=== PATIENT | male | born 1990 | race African-American/Black ===

== ENCOUNTER 2016-02-15 14:36 | Emergency (ER) | payer OTHER ==
[~2016-02-15] VITALS: Ht 193 cm; Wt 104.3 kg
--- NOTE | 2016-02-15 15:35 | ED GI/GU/ABDOMINAL COMPLAINT ---
History of Present Illness General Chief Complaint: Abdominal Pain/Flank Pain Stated Complaint: LFT LOWER ABD PAIN Source: patient Exam Limitations: no limitations Vital Signs & Intake/Output Vital Signs & Intake/Output Vital Signs Date Time Temp Pulse Resp B/P Pulse O2 O2 Flow FiO2 Ox Delivery Rate 02/14 1842 98.2 78 17 134/80 98 Room Air Room Air 02/14 1734 96.7 66 16 144/69 98 Room Air 02/14 1600 Room Air 02/14 1454 98.3 69 20 154/88 97 Room Air ED Intake and Output 02/15 0000 02/14 1200 Intake Total Output Total Balance Patient 230 lb Weight Allergies Coded Allergies: NO KNOWN ALLERGIES (NO) (02/15/16) Reconcile Medications Hydrocodone/Acetaminophen ([place] 5-325 Tablet) 5 MG-325 MG TABLET 1 TAB PO TIDPRN PRN PAIN Naproxen (Naprosyn) 500 MG TABLET 1 TAB PO BID PRN PAIN Tamsulosin HCl (Flomax) 0.4 MG CAP.ER.24H 1 CAP PO DAILY STONES Triage Note: TRIAGE: PT TO ER C/C PAIN TO LLQ ABD WITH RADIATION INTO L TESTICLE X 2 DAYS, CONSTANT. STATES HAD RT SIDED ABD PAIN WITH RADIATION INTO R TESTICLE 2 WEEKS AGO LASTING APPROX 3 DAYS. DID NOT SEE MD AT THAT TIME, RESOLVED WITHOUT INTERVENTION. Triage Nurses Notes Reviewed? yes HPI: 25-year-old male with 2-3 weeks of intermittent left-sided testicular pain that radiates to the left lower quadrant and also mild associated left lower back pain. Pain at times can be severe and at times he has no pain. Last episode of pain was approximately 3 days ago, they started atraumatically, suddenly, worse with palpation of the testicle worse with walking. No urinary symptoms no penile discharge, no swelling, no skin surface changes. No abdominal surgery no history of kidney stones, no hematuria. (CESAR LINDSEY,RAVI) Past History Travel History Traveled to [place] past 21 day No Medical History Any Pertinent Medical History? none Neurological: NONE EENT: NONE Cardiovascular: NONE Respiratory: NONE Gastrointestinal: NONE Hepatic: NONE Renal: NONE Musculoskeletal: NONE Psychiatric: NONE Endocrine: NONE Blood Disorders: NONE Cancer(s): NONE BILLET SAWYER/Reproductive: NONE Surgical History Surgical History: none Psychosocial History What is your primary language Serbian Tobacco Use: Current Not Daily ETOH Use: occasional use Illicit Drug Use: marijuana Family History Hx Contributory? No (RAVI FULTON) Review of Systems Review of Systems Constitutional: Reports: see HPI. EENTM: Reports: no symptoms. Respiratory: Reports: no symptoms. Cardiovascular: Reports: no symptoms. GI: Reports: see HPI. Genitourinary: Reports: see HPI. Musculoskeletal: Reports: no symptoms. Skin: Reports: no symptoms. Neurological/Psychological: Reports: no symptoms. Hematologic/Endocrine: Reports: no symptoms. Immunologic/Allergic: Reports: no symptoms. All Other Systems: Reviewed and Negative (RAVI FULTON) Physical Exam Physical Exam General Appearance: well developed/nourished Gastrointestinal: normal bowel sounds, soft, minimal tenderness in his lower left pelvic area, no hernias no masses, no CVA tenderness Comments: Well-developed well-nourished no apparent distress. HEENT: Atraumatic, extraocular motion intact Neck: Supple, no lymphadenopathy Back: Nontender Respiratory: No respiratory distress clear to auscultation bilateral. Heart: Regular rate and rhythm no murmur Female : External genitalia is normal, right testicle is benign, left tenderness, no swelling no mass, exquisitely tender throughout the testicle especially over the epididymal region Extremities: No edema, full range of motion Neuro: Alert and oriented x3 Psych: Mood affect normal, normal memory normal judgment. Skin: Warm and dry, no rash on exposed skin Core Measures ACS in differential dx? No Severe Sepsis Present: No Septic Shock Present: No (RAVI FULTON) Progress Differential Diagnosis: AAA, AMI, appendicitis, biliary colic, bowel obstruction , colon cancer, cholecystitis, diverticulitis, epididymitis, esophageal varices, gastritis, hepatitis, hernia, hemorrhoids, ischemic bowel, inflamm bowel dis, Charlotte-Shruthi tear, orchitis, pancreatitis, prostatitis, peptic ulcer, PUD/GERD, perforated viscous, pyelonephritis, SBO, STD, testicular torsion, ureterolithiasis, urinary retention, urethritis, UTI/pyelo Plan of Care: Laboratory Tests 02/15/16 1458: Urine Color Cancelled, Urine Clarity Cancelled, Urine pH Cancelled, Ur Specific [place] Cancelled, Urine Protein Cancelled, Urine Ketones Cancelled, Urine Nitrite Cancelled, Urine Bilirubin Cancelled, Urine Urobilinogen Cancelled, Ur Leukocyte Esterase Cancelled, Ur Microscopic Cancelled, Urine Hemoglobin Cancelled, Urine Glucose Cancelled Microbiology 02/14 1458 URINE ROUT: Urine Culture - CAN Cancelled: SPECIMEN NEVER RECEIVED. PATIENT DEPARTED [facility] Diagnostic Imaging: Viewed by Me: CT Scan, Ultrasound. Discussed w/RAD: CT Scan, Ultrasound. Radiology Impression: PATIENT: RAMON HIGHTOWER PRESENT AGE: 25 PATIENT ACCOUNT NO: [id number] : 89 LOCATION: [facility] ORDERING PHYSICIAN: RAVI LINDSEY SERVICE DATE: 02/15/16 EXAM TYPE : US - US-TESTICULAR EXAMINATION: US TESTICULAR CLINICAL INFORMATION: Left-sided testicular pain. COMPARISON: None. TECHNIQUE: Real-time imaging was performed using high-frequency linear transducer. FINDINGS: The right testicle is normal in size and appearance measuring 4.7 x 2.4 x 3.8 cm with a volume of 30 mL. Echotexture is normal. There is no focal lesion. There is normal intratesticular color and duplex Doppler blood flow with normal venous and arterial waveforms. The right epididymis is normal. There is no hydrocele or varicocele. The left testicle is normal in size and appearance with normal echotexture. There is no focal lesion. Size measures 5.0 x 2.3 x 3.3 cm with a volume of 27 mL. Normal color and spectral Doppler blood flow is seen with no evidence for testicular torsion. A small fluid collection in the tail of the epididymis measures 0.8 cm maximally and could represent epididymal cyst or small hydrocele. The epididymis is otherwise unremarkable. There is no varicocele. IMPRESSION: Unremarkable examination. DICTATED BY: YUE SCALES MD DATE/TIME DICTATED:02/15/161599 CABIN SUPERVISOR:CORONEL , ======== PATIENT: RAMON HIGHTOWER PRESENT AGE: 25 PATIENT ACCOUNT NO: [id number] : 89 LOCATION: [facility] ORDERING PHYSICIAN: RAVI LINDSEY SERVICE DATE: 02/15/16 EXAM TYPE: CAT - CT ABD & PELVIS W/O IV CONTRAS EXAMINATION: CT ABDOMEN AND PELVIS WITHOUT CONTRAST CLINICAL INFORMATION: Left-sided abdominal and pelvic pain. Left testicular pain. COMPARISON: Scrotal ultrasound of same day. TECHNIQUE: Multidetector volumetric imaging was performed from the superior aspect of the liver through the pubic symphysis. Sagittal and coronal reformatted images were obtained on the technologist's workstation. DLP: 296 mGy-cm. FINDINGS: LUNG BASES: The visualized lung bases are unremarkable. LIVER, GALLBLADDER, AND BILIARY TREE: The liver is normal in size, shape, and attenuation. No focal hepatic lesion or biliary ductal dilatation is present. The gallbladder is unremarkable with no evidence of radiopaque gallstones, gallbladder wall thickening, or obvious pericholecystic inflammatory changes. PANCREAS: Unremarkable. SPLEEN: Unremarkable. ADRENAL GLANDS: Unremarkable. KIDNEYS AND URETERS: The kidneys are normal in size, shape, and attenuation. No hydronephrosis, hydroureter, or calculi seen. No perinephric stranding. 2 tiny calcifications are present in the region of the left ureterovesical junction. Each measures 0.2 cm in diameter. These could represent distal ureteric calculi is difficult to confirm as there is no hydroureter and lack of intra-abdominal fat makes localization difficult. BLADDER: Unremarkable. GASTROINTESTINAL TRACT: The stomach and duodenum are unremarkable. No abnormality of the small bowel or mesentery is demonstrated. The colon is unremarkable. The appendix is not identified with certainty. There is no evidence for acute appendicitis. ABDOMINAL WALL: No significant hernia is appreciated. LYMPH NODES: Normal. VASCULAR: Limited assessment without contrast. No abnormality is seen. PELVIC VISCERA: Unremarkable. OSSEOUS STRUCTURES: Unremarkable. IMPRESSION: 1. 2 small calcifications in the left hemipelvis in the region of the ureterovesical junction could represent nonobstructing distal ureteric calculi. This is difficult to confirm as there is no hydroureter and lack of intra-abdominal fat makes localization difficult. No other calculi are demonstrated. There is no hydronephrosis. 2. Otherwise normal examination. DICTATED BY: YUE SCALES MD DATE/TIME DICTATED:02/15/161731 CABIN SUPERVISOR:JAYLEN DATE/TIME TRANSCRIBED:02/15/161731 Initial ED EKG: none Comments: Treated with 30 mg of Toradol IM, reevaluation is feeling better. Scrotal ultrasound is unremarkable, we will obtain CT scan of abdomen and pelvis without contrast to evaluate for kidney stone , hernia, or other intra-abdominal pathology CT scan shows 2 possible kidney stones at the left UVJ, this could be the cause of patient's symptoms it is in the correct area any since having back pain and pain radiating into the testicle, recommend following up with urology, he is pain-free on reevaluation again, we'll place him on a short course of Flomax and pain medication as needed he will return with any worsening symptoms. (RAVI FULTON) Departure Departure Disposition: HOME OR SELF CARE Condition: Stable Clinical Impression Primary Impression: Ureterolithiasis Referrals: LALIT SILVESTRE MD PATIENT HAS NO PRIMARY CARE DR (PCP/Family) Additional Instructions: FOLLOW UP WITH UROLOGIST. STRAIN YOUR URINE AND BRING THE STONE TO THE UROLOGIST FOR ANALYSIS IF POSSIBLE. TAKE MEDICATIONS TO HELP PASS THE KIDNEY STONES RETURN WITH SEVERE PAIN, VOMITING OR FEVER. Departure Forms: Customer Survey General Discharge Information Prescriptions: Current Visit Scripts Hydrocodone/Acetaminophen ([place] 5-325 Tablet) 1 TAB PO TIDPRN PRN PAIN #12 TAB Naproxen (Naprosyn) 1 TAB PO BID PRN PAIN #20 TAB Tamsulosin HCl (Flomax) 1 CAP PO DAILY #5 CAP (RAVI FULTON) PA/SURVEY COORDINATOR Co-Sign Statement Statement: ED Attending supervision documentation- [] I saw and evaluated the patient. I have also reviewed all the pertinent lab results and diagnostic results. I agree with the findings and the plan of care as documented in the PA's/SURVEY COORDINATOR's documentation. [x] I have reviewed the ED Record and agree with the PA's/SURVEY COORDINATOR's documentation. [] Additions or exceptions (if any) to the PAs/SURVEY COORDINATOR's note and plan are summarized below: [] (JULIA TRINIDAD,JOHNNIE)
--- NOTE | 2016-02-15 16:09 | ULTRASOUND REPORT ---
EXAMINATION: US TESTICULAR CLINICAL INFORMATION: Left-sided testicular pain. COMPARISON: None. TECHNIQUE: Real-time imaging was performed using high-frequency linear transducer. FINDINGS: The right testicle is normal in size and appearance measuring 4.7 x 2.4 x 3.8 cm with a volume of 30 mL. Echotexture is normal. There is no focal lesion. There is normal intratesticular color and duplex Doppler blood flow with normal venous and arterial waveforms. The right epididymis is normal. There is no hydrocele or varicocele. The left testicle is normal in size and appearance with normal echotexture. There is no focal lesion. Size measures 5.0 x 2.3 x 3.3 cm with a volume of 27 mL. Normal color and spectral Doppler blood flow is seen with no evidence for testicular torsion. A small fluid collection in the tail of the epididymis measures 0.8 cm maximally and could represent epididymal cyst or small hydrocele. The epididymis is otherwise unremarkable. There is no varicocele. IMPRESSION: Unremarkable examination.
--- NOTE | 2016-02-15 17:48 | CT SCAN REPORT ---
EXAMINATION: CT ABDOMEN AND PELVIS WITHOUT CONTRAST CLINICAL INFORMATION: Left-sided abdominal and pelvic pain. Left testicular pain. COMPARISON: Scrotal ultrasound of same day. TECHNIQUE: Multidetector volumetric imaging was performed from the superior aspect of the liver through the pubic symphysis. Sagittal and coronal reformatted images were obtained on the technologist's workstation. DLP: 296 mGy-cm. FINDINGS: LUNG BASES: The visualized lung bases are unremarkable. LIVER, GALLBLADDER, AND BILIARY TREE: The liver is normal in size, shape, and attenuation. No focal hepatic lesion or biliary ductal dilatation is present. The gallbladder is unremarkable with no evidence of radiopaque gallstones, gallbladder wall thickening, or obvious pericholecystic inflammatory changes. PANCREAS: Unremarkable. SPLEEN: Unremarkable. ADRENAL GLANDS: Unremarkable. KIDNEYS AND URETERS: The kidneys are normal in size, shape, and attenuation. No hydronephrosis, hydroureter, or calculi seen. No perinephric stranding. 2 tiny calcifications are present in the region of the left ureterovesical junction. Each measures 0.2 cm in diameter. These could represent distal ureteric calculi is difficult to confirm as there is no hydroureter and lack of intra-abdominal fat makes localization difficult. BLADDER: Unremarkable. GASTROINTESTINAL TRACT: The stomach and duodenum are unremarkable. No abnormality of the small bowel or mesentery is demonstrated. The colon is unremarkable. The appendix is not identified with certainty. There is no evidence for acute appendicitis. ABDOMINAL WALL: No significant hernia is appreciated. LYMPH NODES: Normal. VASCULAR: Limited assessment without contrast. No abnormality is seen. PELVIC VISCERA: Unremarkable. OSSEOUS STRUCTURES: Unremarkable. IMPRESSION: 1. 2 small calcifications in the left hemipelvis in the region of the ureterovesical junction could represent nonobstructing distal ureteric calculi. This is difficult to confirm as there is no hydroureter and lack of intra-abdominal fat makes localization difficult. No other calculi are demonstrated. There is no hydronephrosis. 2. Otherwise normal examination.
[2016-02-15] MEDS ORDERED: FLOMAX0.4 M1 PO (18:09)
[2016-02-15] MEDS ORDERED: NORCO 5-325 TA1 EACH PO (18:09)
[2016-02-15] MEDS ORDERED: NAPROSYN500 M1 PO (18:09)
[2016-02-15 18:42] VITALS: BP 134/80
== END 2016-02-15 18:42 ==
LOC: ERH 14:36
DX: N20.1 Calculus of ureter (principal); M54.5 Low back pain
CPT/HCPCS: 74176; 87086; 96372; J1885